=== PATIENT | male | born 1970 | race Two or more races ===

== ENCOUNTER 2024-01-11 20:30 | Emergency (ER) | payer MEDICAID, OTHER ==
[~2024-01-11] VITALS: Ht 177.8 cm; Wt 113.6 kg
[2024-01-12 00:01] VITALS: BP 106/76; PULSE 85; RESP 20; TEMP 97.9; O2SAT 100
[2024-01-12] MEDS ORDERED: ACET500T58 PO (00:18)
[2024-01-12] MEDS ORDERED: CIPR500T4 PO (00:18)
[2024-01-12] MEDS: cefTRIAXone SOD 1,000 MG VL IM ONE (00:37)
[2024-01-12] MEDS: TETANUS-DIPTH-ACEL PERTUSSIS 0.5ML SYR Tdap IM ONE (00:40)
== END 2024-01-12 01:12 | disposition home or self-care (01) ==
LOC: ER 20:30 → EDBD 20:30 → ER 01-12 01:10
DX: S91.332A Puncture wound without foreign body, left foot, initial encounter (principal); I10 Essential (primary) hypertension; Z79.899 Other long term (current) drug therapy; W22.8XXA Striking against or struck by other objects, initial encounter; Y93.01 Activity, walking, marching and hiking; Y92.89 Other specified places as the place of occurrence of the external cause; Y99.8 Other external cause status
CPT/HCPCS: 73630; 90471; 90715; 96372; 99284; J0696

== ENCOUNTER 2024-02-02 15:16 | Emergency (ER) | payer MEDICAID ==
[~2024-02-02] VITALS: Ht 180.3 cm; Wt 132.7 kg
[~2024-02-02 15:16] MED LIST: ACET500T58 PO; CIPR500T4 PO
[2024-02-02 16:02] VITALS: BP 151/72; PULSE 85; RESP 16; TEMP 98.9; O2SAT 96
[2024-02-02 16:24] LABS: Basophils # (auto) 0 10 ^3/uL (0-0.2); Basophils % (auto) 0.5 % (0.0-2.0); Eosinophils # (auto) 0.4 10 ^3/uL (0-0.8); Eosinophils % (auto) 4.4 % (0.0-7.0); Hematocrit 46.5 % (41.0-53.0); Hemoglobin 15.6 g/dL (13.5-17.5); Lymphocytes # (auto) 2.3 10 ^3/uL (0.4-5.4); Mean Corpuscular Hemoglobin 28.6 pg (28.0-32.0); Mean Corpuscular Hgb Conc. 33.5 g/dL (32.0-36.0); Mean Corpuscular Volume 85.5 fL (80.0-100.0); Monocytes # (auto) 0.7 10 ^3/uL (0-1.3); Monocytes % (auto) 8.2 % (0.0-12.0); Neutrophils # (auto) 4.8 10 ^3/uL (1.6-8.6); Neutrophils % (auto) 58.9 % (37.0-80.0); Red Blood Cells 5.44 10^6/uL (4.5-5.90); Red Cell Distribution Width 14.8 % (11.8-14.3); White Blood Cell 8.2 10^3/uL (4.4-10.8)
[2024-02-02] MEDS: KETOROLAC TROMETH 30 MG/ML 1ML VIAL IM ONE (16:34)
[2024-02-02] MEDS ORDERED: CEPH500C PO (17:19)
[2024-02-02] MEDS ORDERED: NAPR-746 PO (17:20)
[2024-02-02] MEDS ORDERED: LISI-707 PO (17:20)
== END 2024-02-02 17:25 | disposition home or self-care (01) ==
LOC: ER 15:16
DX: I10 Essential (primary) hypertension (principal); M79.672 Pain in left foot
CPT/HCPCS: 36415; 85025; 96372; 99283; J1885